=== PATIENT | female | born 1950 | race Caucasian/White ===

== ENCOUNTER 2017-04-09 09:57 | Day surgery (SDC) | payer MEDICARE, OTHER ==
[2017-04-09] MEDS: RINGER'S SOLUTION,LACTATED 1,000 ML IV PRN (10:43)
--- NOTE | 2017-04-09 12:52 | OR ---
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 A flexible fiberoptic video colonoscopy was introduced and advanced under direct vision without difficulty to the cecum. The usual landmarks were identified. Preparation was fair but good views were obtained. There was a collection of particulate material around the ileocecal valve possibly obscuring a polyp and biopsies were taken of this finding but ultimate it is probably food material. Immediately adjacent however there was a 5mm sessile polyp that was biopsied with cold forceps then destroyed with cautery. The remainder of the cecum, ascending colon, hepatic flexure, and transverse colon were normal. There was a polyp at the splenic flexure at 60cm that was biopsied with cold forceps then destroyed with cautery. The remainder of the descending colon, sigmoid colon, and rectum were normal. Retroflex view was normal. There was an anterior thrombosed external hemorrhoid without complication. The mucosal color, vasculature, and texture were normal throughout. no suspicious masses were seen. The patient tolerated the procedure well without apparent complications and was discharged from the endoscopy suite in stable condition.
[2017-04-09 13:46] VITALS: BP 123/80
== END 2017-04-09 09:58 | disposition home or self-care (01) ==
LOC: AMB 09:57
PROVIDERS: ATTEND Specialist
PROC: 0DBH8ZX Excision of Cecum, Via Natural or Artificial Opening Endoscopic, Diagnostic (ICD-10-PCS; principal; 2017-04-09)
PROC: 0DBL8ZX Excision of Transverse Colon, Via Natural or Artificial Opening Endoscopic, Diagnostic (ICD-10-PCS; 2017-04-09)
DX: Z12.11 Encounter for screening for malignant neoplasm of colon (principal); K63.5 Polyp of colon; I10 Essential (primary) hypertension; Z68.26 Body mass index [BMI] 26.0-26.9, adult

== ENCOUNTER 2018-10-07 13:46 | Inpatient (IN) ==
[2018-10-07] MEDS ORDERED: ADENOSINE 3 MG/ML DISP.SYRIN IV ONE (14:10)
[2018-10-07] MEDS ORDERED: DILTIAZEM HCL 5 MG/ML VIAL IV ONE ×3 (14:14→15:13)
[2018-10-07 14:23] LABS: Hematocrit 41.9 % (37.0-47.0); Hemoglobin 14.3 gm/dL (12.5-16.0); Mean Cell Volume 90.3 fl (78-100); Mean Corpuscular Hemoglobin 30.8 pg (27-31); Mean Corpuscular Hgb Conc 34.1 g/dl (32-36); Neutrophil % 83.5 % (42-75.0); Platelet Count 308 K/mm3 (150-450); Red Blood Count 4.64 M/mm3 (4.2-5.4); Red Cell Distribution Width 12.1 % (11.5-14.0); White Blood Count 15.5 K/mm3 (4.0-10.5)
[2018-10-07 14:33] LABS: Prothrombin Time (Patient) 10.3 Seconds (9.1-10.7)
[2018-10-07 14:34] LABS: INR 1.04 INR (0.92-1.08); Partial Thrombolplastin Time 23.3 Seconds (24-32)
--- NOTE | 2018-10-07 14:37 | ERNOTE ---
Chest Pain/Cardiac HPI Chief Complaint: Dizziness Time Seen by Provider: 10/07/18 14:01 Source: patient Exam Limitations: no limitations Immunizations: IMMUNIZATION HX Immunizations Up to Date Yes Allergies/Adverse Reactions: Allergies No Known Allergies Allergy (Verified 10/07/18 14:10) Home Medications: HOME MEDICATIONS Hydrochlorothiazide [Hydrodiuril] 25 mg PO DAILY 03/22/17 [Last Taken Unknown] calcium carbonate 500 mg calcium (1,250 mg) tablet 500 mg PO DAILY 10/03/18 [Last Taken Unknown] metoprolol succinate ER 50 mg tablet,extended release 24 hr 100 mg PO DAILY #30 tab 10/07/18 [Last Taken Unknown] Narrative: Patient saw her PCP four days ago as she wasn't feeling quite right. due to a persistent cough she was switched from lisinopril to metoprolol 10mg daily. She started the medication the next day and started to not feel well that day, symptoms have increased over the last three days, fatigue, shortness or breath. Her family reports that yesterday she was sweaty and dizzy She denies any similar symptoms prior, no history of heart disease, no chest pain, no smoking, 2 cups of coffee a days Date (Duration): 10/04/18 Chest Pain Radiation: no radiation Activities at Onset: none Modifying Factors - Improves: Present: nothing Modifying Factors - Worsens: Present: exercise Nitro Today/Relief: no nitro taken today Aspirin Treatment Today: no aspirin today Associated Symptoms: Present: shortness of breath, diaphoresis. Absent: nausea, vomiting Review of Systems - Review of Systems Constitutional: Present: fatigue, malaise. Absent: recent illness, fever ENT: Absent: nose congestion, sore throat Respiratory: Present: shortness of breath, cough Cardiology: Present: See HPI, palpitations. Absent: chest pain Gastrointestinal/Abdominal: Absent: nausea, vomiting, abdominal pain Genitourinary: Present: no symptoms reported Musculoskeletal: Absent: back pain Neurological: Present: dizziness/light-headedness. Absent: headache Medical History (Updated 10/07/18 @ 16:42 by Karma Hernandez MD) History of herniated intervertebral disc (Resolved) Onset Date: Unknown Hypertension (Chronic) Onset Date: ~2015 Surgical History: Surgical History (Updated 03/14/18 @ 11:31 by Savanah David CMA) History of colonoscopy Onset Date: 04/09/17 Dr Mcmillan-hyperplastic polyp x2. Recheck 10 years History of tonsillectomy Onset Date: Unknown Family History: Family History (Updated 03/14/18 @ 11:32 by Savanah David CMA) Father , age 85 Leukemia Mother Dementia Heart murmur Social History: Preferred Language Nigerian Do you have any oriental orthodox or No cultural preference? Smoking Status Never smoker Abuse History No History of abuse Psych History No pertinent hx Alcohol Use none Drug Use none (Last Updated 10/03/18 @ 12:11 by Mira Hermosillo MD) No Social History Section defined Physical Exam - Physical Exam General Appearance: Present: wd/wn, alert, no apparent distress, anxious Head Exam: Present: normal inspection Respiratory: Present: no respiratory distress, normal breath sounds, no accessory muscle use, chest nontender, lungs clear Cardiovascular/Chest: Present: no murmur, tachycardia Gastrointestinal/Abdominal: Present: normal bowel sounds, nontender, nondistended, soft Extremity Exam: Present: no edema Neurological Exam: Present: alert, oriented, normal mood/affect Skin Exam: Present: normal color, warm/dry Progress - Results and Orders Patient's Lab Results:: I have reviewed the patient's lab results. - Vital Signs Patient's Vital Signs:: I have reviewed the patient's vital signs. Vital Signs: Vital Signs 10/07/18 14:08 10/07/18 14:15 Temperature 36.7 C Pulse Rate 160 H 165 H Respiratory Rate 31 H Blood Pressure 144/112 H O2 Sat by Pulse Oximetry 92 L - EKG EKG #1 EKG: atrial fibrillation - supraventricular rhythm, HR 169 EKG read: Interp. by me EKG #2 EKG: atrial fibrillation - short term slowing of HR EKG read: Interp. by me EKG #3 EKG: atrial fibrillation - with HR 125, no ST T wave changes EKG read: Interp. by me - X-Ray X-Ray #1 X-Ray: chest - no acute changes Interpretation: Reviewed by me - CT/Ultrasound CT/Ultrasound Narrative: CTA: MPRESSION: 1. BORDERLINE CARDIAC SIZE. 2. SMALL CALCIFIED GALLSTONES. 3. SMALL RIGHT BASAL EFFUSION. 4. MILD PATCHY GROUNDGLASS OPACITIES WHICH MAY REFLECT MILD INTERSTITIAL EDEMA. 5. MILD PATCHY DENSITIES IN THE BASAL PORTION RIGHT MIDDLE LOBE AND TO LESSER EXTENT WITHIN THE RIGHT LOWER LOBE; THIS MAY REFLECT ATELECTASIS OR POSSIBLY EARLY INFILTRATES. 6. NO EVIDENCE FOR PULMONARY EMBOLUS. - Progress/Reassessment Chief Complaint: Dizziness Progress Note-Subjective: 10/07/18 14:30 EKG initially most likely a-fib after adenosine briefly slowing of HR, looks more like afib after giving cardizem HR slowed down to the 120's 10/07/18 15:14 discussed labs results with patient and family, will get CTA as d-dimer elevated HR up to 150's, will repeat dose of cardizem 10/07/18 16:[address] results and diagnosis of afib with patient and family 10/07/18 16:40 discussed with sabino Eden to admit to SCU on cardizem drip, cheyanne weinsteiniqujorge Departure Clinical Impression: New onset a-fib - Departure Disposition: Still a patient Condition: Stable
[2018-10-07 14:44] LABS: Albumin * 3.6 gm/dl (3.4-5.0); Anion Gap 15.5 mmol/L (6.8-13.8); Bilirubin, Total 0.9 mg/dL (0.0-1.1); Carbon Dioxide 24.4 mmol/L (24-32.6); Potassium 3.9 mmol/L (3.4-4.6); TSH * 1.103 uIU/mL (0.358-3.74); Troponin I 0.073 ng/mL (0.00-0.10)
[2018-10-07] MEDS: DILTIAZEM HCL 125 MG in DEXTROSE 5 % IN WATER 100 ML IV PRN ×2 (16:11)
[2018-10-07] MEDS ORDERED: FUROSEMIDE 10 MG/ML VIAL IV ONE (19:32)
[2018-10-07] MEDS ORDERED: METOPROLOL TARTRATE 1 MG/ML AMPUL IV ONE (19:49)
--- NOTE | 2018-10-07 19:52 | HP ---
Chief Complaint - Chief Complaint Date of Service: 10/07/18 Time of Service: 19:52 Chief Complaint: palpitations, SOB History of Present Illness: Ms. Cisneros is a pleasant 68-year-old female with no real cardiac history presented to the ER for shortness of breath palpitations. Patient was found to be in A. fib with RVR and was started on diltiazem drip. Patient was started on Eliquis for anticoagulation. Patient's only real medical issue was hypertension which her PCP had recently stopped lisinopril and started on metoprolol due to a chronic cough. Patient states that after the medications were changed she developed shortness of breath, fatigue, and palpitations. She was slightly diaphoretic and dizzy. Patient was admitted to the floor under inpatient for new onset A. fib with RVR. Pertinent labs include her to have a white count at 15.5 the left shift to 83.5. No source identified for leukocytosis. She had a slightly elevated d-dimer at 1.19 which prompted the ER physician to get a CT angiogram which showed no evidence of pulmonary embolus. Patient had a BNP of 6457 and has no history of congestive heart failure. Patient has no swelling in her lower extremities. Patient had 2 sets of troponins drawn which were both negative. Her lactic acid was also negative at 1.9. Medical History (Updated 10/07/18 @ 19:52 by Josef Christian DO) History of herniated intervertebral disc (Resolved) Onset Date: Unknown Hypertension (Chronic) Onset Date: ~2016 Surgical History: Surgical History (Updated 10/07/18 @ 19:52 by Josef Christian DO) History of colonoscopy Onset Date: 04/09/17 Dr Mcmillan-hyperplastic polyp x2. 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 Smoking Status Never smoker Have you smoked in the past 12 No months Abuse History No History of abuse Psych History No pertinent hx Alcohol Use none Drug Use none (Last Updated 10/03/18 @ 12:11 by Mira Hermosillo MD) No Social History Section defined Review Of Systems (GEN) - Review of Systems Generalized/Overall Review: Present: Weakness, Fatigue. Absent: Chills, Fever EENTM: Present: No Symptoms Reported Respiratory: Present: Cough, Shortness of Breath Cardiac: Present: Palpitations. Absent: Chest Pain, Edema Abdominal: Present: No Symptoms Reported Genitourinary: Present: No Symptoms Reported Musculoskeletal: Present: No Symptoms Reported Neurological: Present: No Symptoms Reported Skin: Present: No Symptoms Reported Endocrine: Present: No Symptoms Reported Immunizations: IMMUNIZATION HX Immunizations Up to Date Yes Allergies/Adverse Reactions: Allergies Allergy/AdvReac Type Severity Reaction Status Date / Time No Known Allergies Allergy Verified 10/07/18 17:25 Home Medications: HOME MEDICATIONS calcium carbonate 500 mg calcium (1,250 mg) tablet 500 mg PO DAILY 10/03/18 [Last Taken Unknown] metoprolol succinate ER 50 mg tablet,extended release 24 hr 100 mg PO DAILY #30 tab 10/07/18 [Last Taken Unknown] Exam - Exam Vital Signs: Vital Signs - Last Taken Temp 37.0 C 10/07/18 17:27 Pulse 129 H 10/07/18 18:37 Resp 32 H 10/07/18 18:37 BP 144/80 10/07/18 18:37 Pulse Ox 96 10/07/18 18:37 Constitutional: Present: Alert, Oriented x3, Cooperative, Mild distress - Shortness of breath ENT Exam: Present: hearing grossly normal. Absent: nasal congestion, nasal drainage Eye Exam: bilateral eye: normal inspection Neck: Present: non-tender, supple Respiratory: Present: lungs clear, normal breath sounds, no respiratory distress Cardiovascular/Chest: Present: tachycardia, irregularly irregular. Absent: no murmur Abdomen: Present: Normal bowel sounds, soft, nontender /Rectal: Present: Exam deferred Skin Exam: Present: diaphoresis Lymphatic: Present: no adenopathy Appearance: Present: appropriate appearance, appropriate insight Eye contact: Present: cooperative, good eye contact Thoughts: Present: normal thought pattern, normal mood /affect Diagnostic Studies: Abnormal Lab Results 10/07/18 10/07/18 10/07/18 Range/Units 14:17 14:17 14:20 WBC 15.5 H (4.0-10.5) K/mm3 Immature Gran % (Auto) 0.50 H (0.001-0.429) % Immature Gran # (Auto) 0.08 H (0.000-0.0310) K/mm3 Neutrophils % 83.5 H (42-75.0) % Lymphocytes % 11.3 L (20-51) % Neutrophils # 13.0 H (1.3-6.0) K/mm3 PTT ([facility]son) (24-32) Seconds D-Dimer 1.19 H (0.19-0.49) ug/mL Anion Gap (6.8-13.8) mmol/L BUN (3-23) mg/dL BUN/Creatinine Ratio (9.0-21.6) Random Glucose (70-110) mg/dL B-Natriuretic Peptide 6457 H (5-325) pg/mL 10/07/18 10/07/18 Range/Units 14:20 14:20 WBC (4.0-10.5) K/mm3 Immature Gran % (Auto) (0.001-0.429) % Immature Gran # (Auto) (0.000-0.0310) K/mm3 Neutrophils % (42-75.0) % Lymphocytes % (20-51) % Neutrophils # (1.3-6.0) K/mm3 PTT (Woodson) 23.3 L (24-32) Seconds D-Dimer (0.19-0.49) ug/mL Anion Gap 15.5 H (6.8-13.8) mmol/L BUN 24 H (3-23) mg/dL BUN/Creatinine Ratio 32.0 H (9.0-21.6) Random Glucose 143 H (70-110) mg/dL B-Natriuretic Peptide (5-325) pg/mL Laboratory Results WBC 15.5 K/mm3 (4.0-10.5) H 10/07/18 14:20 RBC 4.64 M/mm3 (4.2-5.4) 10/07/18 14:20 Hgb 14.3 gm/dL (12.5-16.0) 10/07/18 14:20 Hct 41.9 % (37.0-47.0) 10/07/18 14:20 MCV 90.3 fl (78-100) 10/07/18 14:20 MCH 30.8 pg (27-31) 10/07/18 14:20 MCHC 34.1 g/dl (32-36) 10/07/18 14:20 RDW 12.1 % (11.5-14.0) 10/07/18 14:20 Plt Count 308 K/mm3 (150-450) 10/07/18 14:20 MPV 9.0 fl (8-12.5) 10/07/18 14:20 Immature Gran % (Auto) 0.50 % (0.001-0.429) H 10/07/18 14:20 Immature Gran # (Auto) 0.08 K/mm3 (0.000-0.0310) H 10/07/18 14:20 83.5 % (42-75.0) H 10/07/18 14:20 11.3 % (20-51) L 10/07/18 14:20 4.4 % (0.0-9) 10/07/18 14:20 0.0 % (0.0-3.0) 10/07/18 14:20 0.3 % (0.0-1.0) 10/07/18 14:20 Nucleated RBC % 0.0 k/mm3 (0-1) 10/07/18 14:20 13.0 K/mm3 (1.3-6.0) H 10/07/18 14:20 1.75 k/mm3 (1.5-3.5) 10/07/18 14:20 0.7 k/mm3 (0.0-1.0) 10/07/18 14:20 0.0 k/mm3 (0.0-0.7) 10/07/18 14:20 Absolute Basophils 0.0 k/mm3 (0.0-0.1) 10/07/18 14:20 PT 10.3 Seconds (9.1-10.7) 10/07/18 14:20 INR (Anticoag Therapy) 1.04 INR (0.92-1.08) 10/07/18 14:20 PTT (Woodson) 23.3 Seconds (24-32) L 10/07/18 14:20 1.19 ug/mL (0.19-0.49) H 10/07/18 14:17 Sodium 140 mmol/L (132-142) 10/07/18 14:20 141 mmol/L (130-142) 10/07/18 14:20 Potassium 3.9 mmol/L (3.4-4.6) 10/07/18 14:20 Chloride 104 mmol/L (97-106) 10/07/18 14:20 Carbon Dioxide 24.4 mmol/L (24-32.6) 10/07/18 14:20 15.5 mmol/L (6.8-13.8) H 10/07/18 14:20 BUN 24 mg/dL (3-23) H 10/07/18 14:20 0.75 mg/dL (0.4-1.4) 10/07/18 14:20 Est GFR (Non-Af Amer) 82 mL/min (60-130) 10/07/18 14:20 32.0 (9.0-21.6) H 10/07/18 14:20 143 mg/dL (70-110) H 10/07/18 14:20 Calcium 9.0 mg/dL (7.9-10.9) 10/07/18 14:20 Calcium Adj for Albumin 9.0 mg/dL (8.4-10.2) 10/07/18 14:20 0.9 mg/dL (0.0-1.1) 10/07/18 14:20 AST 31 U/L (0-48) 10/07/18 14:20 ALT 49 U/L (19-67) 10/07/18 14:20 90 U/L (50-170) 10/07/18 14:20 0.070 ng/mL (0.00-0.10) 10/07/18 18:05 B-Natriuretic Peptide 6457 pg/mL (5-325) H 10/07/18 14:17 7.0 gm/dL (6.2-8.2) 10/07/18 14:20 3.6 gm/dl (3.4-5.0) 10/07/18 14:20 TSH 1.103 uIU/mL (0.358-3.74) 10/07/18 14:20 Assessment/Plan - Narrative Narrative: 68-year-old female with new onset A. fib with RVR and likely congestive heart failure-continue diltiazem drip though the rate not well controlled at this time. Will restart metoprolol as she is not taking this today. Patient started on Eliquis for anticoagulation. If we cannot get decent rate control with these medications will likely start digoxin in the morning. Patient currently n.p.o. EKGs showed her to be in A. fib with no other concerning readings. Field Insurance Sales Manager in [facility] read her EKGs to be sure. Troponins negative x2. patient will likely need outpatient echocardiogram due to elevated BNP as patient likely has congestive heart failure causing the new's onset A. fib with RVR, shortness of breath, cough. 40 mg IV Lasix x1 given to patient today. Will see how she does tomorrow before restarting as patient is currently on high doses of blood pressure medication and we do not want to make her hemodynamically unstable. Repeat CBC in the morning due to leukocytosis. Blood pressure has been stable aside from a few elevated readings in the 170s over 90s but otherwise appropriate. Patient currently n.p.o., on Eliquis for DVT prophylaxis. Nurse will call with any questions or concerns. - Assessment/Plan (1) New onset a-fib Problem: Acute (2) Elevated brain natriuretic peptide (BNP) level Problem: Acute (3) Leukocytosis Problem: Acute (4) Hypertension Problem: Chronic
[2018-10-07] MEDS: METOPROLOL TARTRATE 50 MG TABLET PO SCH (21:05)
[2018-10-07] MEDS: APIXABAN 5 MG TABLET PO SCH (21:05)
[2018-10-08] MEDS: DILTIAZEM HCL 125 MG in DEXTROSE 5 % IN WATER 100 ML IV PRN ×8 (00:47→20:40)
[2018-10-08] MEDS: METOPROLOL TARTRATE 50 MG TABLET PO SCH (08:45)
[2018-10-08] MEDS: APIXABAN 5 MG TABLET PO SCH ×2 (08:45→21:15)
[2018-10-08] MEDS ORDERED: METOPROLOL TARTRATE 50 MG TABLET PO ONE (09:00)
[2018-10-08] MEDS: METOPROLOL TARTRATE 100 MG TABLET PO SCH ×2 (09:50→21:15)
[2018-10-08] MEDS ORDERED: DILTIAZEM HCL 60 MG TABLET PO SCH ×2 (10:00→17:00)
--- NOTE | 2018-10-08 12:26 | PN ---
Subjective - Date and Time Seen Date: 10/08/18 Time: 12:17 Subjective Narrative: Patient much more comfortable this morning. Heart rate in the low 100s but patient no longer endorsing shortness of breath. Patient diuresed close to 9 pounds overnight. No acute events overnight, patient is resting comfortable in bed. Objective - Review of Systems Generalized/Overall Review: Denies: Weakness, Chills, Fever EENTM: Reports: No Symptoms Reported Respiratory: Reports: Cough. Denies: Shortness of Breath, Wheezing Cardiac: Denies: Chest Pain, Edema, Palpitations Abdominal: Reports: No Symptoms Reported Skin: Reports: No Symptoms Reported Endocrine: Reports: No Symptoms Reported - Vitals Vitals: Last Vital Signs Temp 37.1 C 10/08/18 10:30 Pulse 82 10/08/18 11:38 Resp 25 H 10/08/18 11:38 BP 98/69 10/08/18 11:38 Pulse Ox 93 10/08/18 11:38 - Abnormal Lab Findings Abnormal Lab Findings: Abnormal Lab Results 10/07/18 10/07/18 10/07/18 Range/Units 14:17 14:17 14:20 WBC 15.5 H (4.0-10.5) K/mm3 Immature Gran % (Auto) 0.50 H (0.001-0.429) % Immature Gran # (Auto) 0.08 H (0.000-0.0310) K/mm3 Neutrophils % 83.5 H (42-75.0) % Lymphocytes % 11.3 L (20-51) % Neutrophils # 13.0 H (1.3-6.0) K/mm3 PTT ([facility]es) (24-32) Seconds D-Dimer 1.19 H (0.19-0.49) ug/mL pCO2 (32.0-45.0) mmHg HCO3 (21.0-28.0) mmol/L Base Excess (-2.0-3.0) mmol/L Anion Gap (6.8-13.8) mmol/L BUN (3-23) mg/dL BUN/Creatinine Ratio (9.0-21.6) Random Glucose (70-110) mg/dL B-Natriuretic Peptide 6457 H (5-325) pg/mL 07/05/19 07/05/19 07/05/19 Range/Units 14:20 14:20 19:48 WBC (4.0-10.5) K/mm3 Immature Gran % (Auto) (0.001-0.429) % Immature Gran # (Auto) (0.000-0.0310) K/mm3 Neutrophils % (42-75.0) % Lymphocytes % (20-51) % Neutrophils # (1.3-6.0) K/mm3 PTT (Karnes) 23.3 L (24-32) Seconds D-Dimer (0.19-0.49) ug/mL pCO2 29.3 L (32.0-45.0) mmHg HCO3 19.8 L (21.0-28.0) mmol/L Base Excess -2.9 L (-2.0-3.0) mmol/L Anion Gap 15.5 H (6.8-13.8) mmol/L BUN 24 H (3-23) mg/dL BUN/Creatinine Ratio 32.0 H (9.0-21.6) Random Glucose 143 H (70-110) mg/dL B-Natriuretic Peptide (5-325) pg/mL - Exam Constitutional: Present: Alert, Oriented x3, Cooperative ENT Exam: Present: hearing grossly normal Neck: Present: non-tender, supple Respiratory: Present: chest non-tender, lungs clear. Absent: crackles - Resolved Cardiovascular/Chest: Present: irregularly irregular. Absent: no murmur Abdomen: Present: Normal bowel sounds, soft, nontender /Rectal: Present: Exam deferred Skin Exam: Present: normal color, warm/dry Lymphatic: Present: no adenopathy Appearance: Present: appropriate appearance, appropriate insight Eye contact: Present: cooperative, good eye contact Thoughts: Present: normal thought pattern, normal mood /affect Assessment/Plan Plan Narrative: 68-year-old female with new onset A. fib with RVR and likely congestive heart failure-we will increase metoprolol to 100 mg twice daily and transition her from diltiazem drip to oral diltiazem. Continue Eliquis for anticoagulation. Digoxin not needed this morning. Patient started on heart healthy diet. Previous EKGs showed her to be in A. fib with no other concerning readings. Religious Assistant in [facility] read her EKGs to be sure. Troponins negative x2. patient will likely need outpatient echocardiogram due to elevated BNP as patient likely has congestive heart failure causing the new's onset A. fib with RVR, shortness of breath, cough. Shortness of breath and cough both improved on diuresis, holding Lasix at this time as her blood pressure is in acceptable range though on the lower side and do not want to make her hemodynamically unstable. Awaiting CBC results for leukocytosis Vital signs including blood pressure stable and within an acceptable range. Patient currently on a heart healthy diet, on Eliquis for DVT prophylaxis. If patient continues to do well and her rate stays controlled, can likely send her home tomorrow with oral diltiazem and metoprolol for rate control and continue Eliquis for anticoagulation. We will get her set up with outpatient echocardiogram and cardiology referral. Nurse will call with any questions or concerns. - Problems/Diagnosis (1) New onset a-fib Problem: Acute (2) Elevated brain natriuretic peptide (BNP) level Problem: Acute (3) Leukocytosis Problem: Acute (4) Hypertension Problem: Chronic
[2018-10-08 12:46] LABS: Hemoglobin 14.3 gm/dL (12.5-16.0); Mean Cell Volume 93.8 fl (78-100); Mean Corpuscular Hemoglobin 30.5 pg (27-31); Mean Corpuscular Hgb Conc 32.5 g/dl (32-36); Mean Platelet Volume 9.8 fl (8-12.5); Neutrophil # 9.3 K/mm3 (1.3-6.0); Platelet Count 248 K/mm3 (150-450); Red Blood Count 4.69 M/mm3 (4.2-5.4); Red Cell Distribution Width 12.4 % (11.5-14.0)
[2018-10-08] MEDS ORDERED: FUROSEMIDE 10 MG/ML VIAL IV ONE (18:00)
[2018-10-08 18:19] LABS: Anion Gap 13.1 mmol/L (6.8-13.8); BUN/Creatinine Ratio 29.5 (9.0-21.6); Calcium * 8.1 mg/dL (7.9-10.9); Estimated Creat Clear 49.7; Potassium 3.1 mmol/L (3.4-4.6)
[2018-10-08] MEDS ORDERED: POTASSIUM CHLORIDE 40 MEQ/15 ML LIQUID PO ONE (18:34)
[2018-10-08] MEDS ORDERED: DILTIAZEM HCL 125 MG in DEXTROSE 5 % IN WATER 100 ML IV PRN ×2 (19:37)
[2018-10-08] MEDS ORDERED: NORMAL SALINE 1,000 ML IV PRN (21:26)
[2018-10-09 06:38] LABS: Anion Gap 13.2 mmol/L (6.8-13.8); BUN/Creatinine Ratio 28.8 (9.0-21.6); Calcium * 8.4 mg/dL (7.9-10.9); Carbon Dioxide 28.2 mmol/L (24-32.6); Estimated Creat Clear 54.7; Potassium 3.4 mmol/L (3.4-4.6)
[2018-10-09 09:26] VITALS: BP 119/86
--- NOTE | 2018-10-09 10:01 | DS ---
Transfer Discharge Summary - Diagnosis(s)/Problems (1) New onset a-fib Problem: Acute (2) Elevated brain natriuretic peptide (BNP) level Problem: Acute (3) Hypertension Problem: Chronic (4) Leukocytosis Problem: Acute - Course Description of Stay: 68-year-old female with history of hypertension presented to the ER 2 days ago for new onset A. fib with RVR. She was admitted to the ICU on a diltiazem drip as well as started on metoprolol tartrate 100 mg twice daily. Initial rate control was achieved after 24 hours of admission but once patient was switched to oral diltiazem her A. fib with RVR rates went back into the 130s to 150s which required her to go back on the diltiazem drip. At this time patient's family desired transfer to hospital with higher level of care with in- house cardiology. [facility] contacted who accepted the transfer. She will be transferred there in stable condition by ambulance on a diltiazem drip, currently running at 15 mg/h.. Her vital signs are stable currently and her last heart rate was in the low 100s. She is satting well on room air and otherwise feels fine. She was also found to have a BMP of 6457. IV Lasix was given daily 40 mg, diuresis of close to 9 pounds achieved over the last 2 days. Shortness of breath improved dramatically following this. She also had a low potassium the day after admission at 3.1 which was address anded resolved to 3.4 on day of transfer. Of note patient saw her PCP 2 days prior to admission and had her blood pressure medication switch from lisinopril hydrochlorothiazide to metoprolol succinate 50 mg due to chronic cough. Procedures Performed: none - Results and Findings Results and Findings: Laboratory Results - last 24 hr 10/08/18 10/08/18 10/09/18 12:40 18:06 06:27 WBC 12.0 H D RBC 4.69 Hgb 14.3 Hct 44.0 MCV 93.8 MCH 30.5 MCHC 32.5 RDW 12.4 Plt Count 248 MPV 9.8 Immature Gran % (Auto) 0.30 Immature Gran # (Auto) 0.04 H Neutrophils % 78.0 H Lymphocytes % 15.5 L Monocytes % 5.2 Eosinophils % 0.7 Basophils % 0.3 Nucleated RBC % 0.0 Neutrophils # 9.3 H Lymphocytes # 1.86 Monocytes # 0.6 Eosinophils # 0.1 Absolute Basophils 0.0 Sodium 139 139 Plasma Sodium 140 139 Potassium 3.1 L D 3.4 Chloride 100 101 Carbon Dioxide 29.0 28.2 Anion Gap 13.1 13.2 BUN 26 H 23 Creatinine 0.88 0.80 Est GFR (Non-Af Amer) 68 76 BUN/Creatinine Ratio 29.5 H 28.8 H Random Glucose 140 H 123 H Calcium 8.1 8.4 - Medications Medications: Active Medications Apixaban (Eliquis) 5 mg PO BID [facility] Stop: 11/06/18 21:01 Last Admin: 10/08/18 21:15 Dose: 5 mg Documented by: Diltiazem HCl 125 mg/ Dextrose (/Water) 125 mls @ 0 mls/hr IV TITR PRN; Protocol PRN Reason: Arrhythmia Stop: 11/07/18 19:38 Last Titration: 10/09/18 07:06 Dose: 15 mg/hr, 15 mls/hr Documented by: Sodium Chloride (Sodium Chloride 0.9%) 1,000 mls @ 25 mls/hr IV .Q24H PRN PRN Reason: Hydration Stop: 11/07/18 21:27 Last Admin: 10/08/18 21:34 Dose: 25 mls/hr Documented by: Metoprolol Tartrate (Lopressor) 100 mg PO BID [facility] Stop: 11/07/18 09:01 Last Admin: 10/08/18 21:15 Dose: 100 mg Documented by: Discontinued Medications Adenosine (Adenocard) 6 mg IV ONCE ONE Stop: 10/07/18 14:11 Last Admin: 10/07/18 14:14 Dose: 6 mg Documented by: Diltiazem HCl (Cardizem) 20 mg IV ONCE ONE Stop: 10/07/18 14:15 Last Admin: 10/07/18 14:15 Dose: 20 mg Documented by: Diltiazem HCl (Cardizem) 20 mg IV ONCE ONE Stop: 10/07/18 15:14 Last Admin: 10/07/18 15:18 Dose: 20 mg Documented by: Diltiazem HCl (Cardizem) 60 mg PO Q8H [facility] Stop: 11/07/18 10:01 Last Admin: 10/08/18 09:58 Dose: 60 mg Documented by: Diltiazem HCl (Cardizem) 60 mg PO Q6H [facility] Stop: 11/07/18 17:01 Last Admin: 10/08/18 16:09 Dose: 60 mg Documented by: Furosemide (Lasix) 40 mg IV ONCE ONE Stop: 10/07/18 19:33 Last Admin: 10/07/18 19:42 Dose: 40 mg Documented by: Furosemide (Lasix) 40 mg IV ONCE ONE Stop: 10/08/18 18:01 Last Admin: 10/08/18 18:03 Dose: 40 mg Documented by: Diltiazem HCl 125 mg/ Dextrose (/Water) 125 mls @ 0 mls/hr IV TITR PRN; Pr otocol PRN Reason: Arrhythmia Stop: 11/06/18 15:58 Last Titration: 10/09/18 05:11 Dose: Infused Documented by: Metoprolol Tartrate (Lopressor) 5 mg IV ONCE ONE Stop: 10/07/18 19:50 Last Admin: 10/07/18 20:15 Dose: 5 mg Documented by: Metoprolol Tartrate (Lopressor) 50 mg PO BID [facility] Stop: 11/06/18 21:01 Last Admin: 10/08/18 08:45 Dose: 50 mg Documented by: Metoprolol Tartrate (Lopressor) 50 mg PO ONCE ONE Stop: 10/08/18 09:01 Last Admin: 10/08/18 09:05 Dose: 50 mg Documented by: Potassium Chloride (Potassium Chloride 40 Meq/15ml Liquid) 40 meq PO ONCE ONE Stop: 10/08/18 18:35 Last Admin: 10/08/18 19:25 Dose: 40 meq Documented by: - Disposition Disposition: Short Term Hospital Inpatient Condition: Stable Discharge Date: 10/09/18 Discharge Time: 10:00
== END 2018-10-09 09:55 | disposition short-term general hospital (02) | DRG 310 ==
LOC: ER 13:46 → MS 16:49 → SCU 10-08 20:52
PROVIDERS: ADMIT Family Medicine; ATTEND Family Medicine
DX: I10 Essential (primary) hypertension; R78.89 Finding of other specified substances, not normally found in blood; D72.829 Elevated white blood cell count, unspecified; I48.0 Paroxysmal atrial fibrillation; R06.02 Shortness of breath
CPT/HCPCS: 36415; 36600; 71010; 71045; 71275; 80048; 80053; 82803; 83519; 83605; 83880; 84443; 84484; 85025; 85379; 85610; 85730; 93005; 96365; 96375; 96376; 99285; Q9967